=== PATIENT | male | born 1965 | race Caucasian/White ===

== ENCOUNTER 2019-04-10 05:49 | Day surgery (SDC) | payer OTHER ==
[~2019-04-10] VITALS: Ht 168.9 cm; Wt 74.1 kg
[2019-04-10] VITALS (15 sets, daily range): BP systolic 112–154; BP diastolic 76–100; PULSE 52–82; RESP 12–35
[2019-04-10] MEDS ORDERED: BUPIVACAINE 0.5% (SDV) 30 ML INJ ONE (07:00)
[2019-04-10] MEDS ORDERED: POLYMYXIN/BACITRACIN 1L IRRIG ONE (07:00)
--- NOTE | 2019-04-10 07:04 | HPN ---
Date/Time of Note Date/Time of Note DATE: 04/10/19 TIME: 07:03 Interval H&P Admission Note Pt. seen H&P reviewed: No system changes JOSTIN GAMINO DPM Apr 10, 2019 07:04
--- NOTE | 2019-04-10 07:27 | PREAC ---
Date/Time of Note Date/Time of Note DATE: 04/10/19 TIME: 07:25 Anesthesia Eval and Record Evaluation Time Pre-Procedure Interview DATE: 04/10/19 TIME: 07:25 Age 53 Sex male NPO: 8 hrs Preoperative diagnosis left hammertoe Planned procedure left hammertoe correction, bunionectomy Past Medical History Past Medical History: Includes Cardio: Dyslipidemia Surgery & Anesthesia Issues No known issue Meds Anticoagulation: No Beta Michaelle within 24 hr: No Reason Beta Michaelle not given: Pt. not on B-Michaelle Meds reviewed: Yes Allergies Coded Allergies: No Known Allergy (Unverified , 04/10/19) Allergies Reviewed: Yes Labs/Studies Labs Reviewed: Reviewed by anesthesiologist test: Negative Pre-procedure Exam Airway: Adequate mouth opening, Adequate thyromental dist Mallampati: Mallampati II Teeth: Normal Lung: Normal Heart: Normal ASA Physical Status ASA physical status: 1 Emergency: None Planned Anesthetic General/MAC: LMA Planned Pain Management Parenteral pain med Pre-operative Attestations Prior to commencing anesthesia and surgery, the patient was re-evaluated, there was verification of: *The patient's identity *The results of appropriate recent lab work and preoperative vital signs *The above evaluation not changing prior to induction *Anesthetic plan, risk benefits, alternative and complications discussed with patient/family; questions answered; patient/family understands, accepts and wishes to proceed. DELGADO MANZANO Apr 10, 2019 07:27
[2019-04-10] MEDS ORDERED: LIDOCAINE 1% (MPF) 30 ML INJ ONE (07:42)
[2019-04-10] MEDS ORDERED: PROPOFOL 20 ML ONE ×3 (07:44→07:56)
[2019-04-10] MEDS ORDERED: FENTAnyl 50 MCG/ML VIAL ONE (07:45)
[2019-04-10] MEDS ORDERED: CEFAZOLIN 1 GM INJ ONE (07:56)
[2019-04-10] MEDS ORDERED: LIDOCAINE 2% (SDV) 5 ML INJ ONE (07:56)
[2019-04-10] MEDS: DEXAMETHASONE 4 MG/ML 1 ML INJ ONE ×2 (08:11)
--- NOTE | 2019-04-10 08:39 | SIPON ---
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
--- NOTE | 2019-04-10 08:45 | PAC ---
Date/Time of Note Date/Time of Note DATE: 04/10/19 TIME: 08:44 Post-Anesthesia Notes Post-Anesthesia Note Last documented vital signs bp 134/78 p 78 Os sat 98% temp 98 Activity: WNL Respiratory function: WNL Cardiovascular function: WNL Mental status: Baseline Pain reasonably controlled: Yes Hydration appropriate: Yes Nausea/Vomiting absent: Yes DELGADO MANZANO Apr 10, 2019 08:45
[2019-04-10] MEDS ORDERED: MEPERIDINE 25 MG INJ ONE (08:51)
[2019-04-10] MEDS ORDERED: HYDROmorphONE 1 MG/5 ML IV SYRINGE IV PRN ×3 (09:00)
[2019-04-10] MEDS ORDERED: KETOROLAC 30 MG INJ IV PRN (09:00)
[2019-04-10] MEDS ORDERED: MEPERIDINE 25 MG INJ IV PRN (09:00)
[2019-04-10] MEDS ORDERED: OXYCODONE/ACETAMINOPHEN (5/325) TAB PO PRN ×2 (09:00)
[2019-04-10] MEDS ORDERED: DIPHENHYDRAMINE 50 MG INJ IV PRN (09:00)
[2019-04-10] MEDS ORDERED: hydrALAzine 20 MG INJ IV PRN (09:00)
[2019-04-10] MEDS ORDERED: EPHEDrine 25 MG/5 ML SYG IV PRN (09:00)
[2019-04-10] MEDS ORDERED: LACTATED RINGER'S 1,000 ML IV SCH (09:00)
[2019-04-10] MEDS ORDERED: FENTAnyl 50 MCG/ML VIAL IV PRN ×3 (09:00)
[2019-04-10] MEDS ORDERED: ONDANSETRON 4 MG INJ IV PRN (09:00)
[2019-04-10] MEDS ORDERED: ALBUTEROL 0.083% (NEB) 2.5 MG/3 ML AMP HHN PRN (09:00)
[2019-04-10] MEDS ORDERED: LABETALOL HCL 20MG INJ IV PRN (09:00)
--- NOTE | 2019-04-10 12:55 | OPR ---
DATE OF OPERATION: 04/10/2019 SURGEON: Radha Scott DPM. PREOPERATIVE DIAGNOSIS: Bunion deformity, left foot. POSTOPERATIVE DIAGNOSIS: Hammertoe deformity, second toe, left foot. PROCEDURE: Bunionectomy of the left foot and arthroplasty of the second toe, left foot. DESCRIPTION OF PROCEDURE: The patient was brought to the OR and placed in a supine position on the o perating room table. Anesthesia was achieved using MAC and local for 20 mL of lidocaine 1% plain. T he ankle was then wrapped several times with Webril and tourniquet was placed over the Webril. Next, the foot was draped and prepped in a sterile fashion and tourniquet was inflated to 250 mmHg. Attention was then directed to the dorsal aspect of the first MPJ of the left foot. A 4 cm linear in cision was made over the first MPJ. Incision was deepened in the same plane using sharp and blunt di ssection. Vital structures were identified and retracted from the site. Next, capsular incision was made and the first metatarsal bone was released from surrounding soft tissues. The medial prominent eminence and also dorsal prominent eminence of the bone was resected using a saw and rasp and smooth ed with a power bur. The area was then flushed with copious amount of normal saline and then capsula r closure was obtained using a 4-0 Vicryl and subcutaneous closure using 4-0 Vicryl and skin closure using christiano. Next, attention was directed to the dorsal aspect of the left second toe. A 2 cm luan ear incision was made over the PIPJ of the second toe. The incision was deepened using sharp dissect ion. The head of the proximal phalanx was identified and released from surrounding soft tissue. The head of the proximal phalanx was resected using a saw. The area was rasped smooth and then the exte nsor tendon was reattached using 4-0 Vicryl. Subcutaneous closure using 4-0 Vicryl and skin closure using 4-0 nylon in a simple interrupted fashion. The surgical site was then infiltrated with 4 mL of 0.5% Marcaine plain and 1 mL of dexamethasone sodium phosphate. The surgical site was then covered with Adaptic, 4 x 4s and Kerlix in a compressive fashion. The tourniquet was then deflated and immed iate capillary refill was noted to all digits of left foot. Patient tolerated anesthesia and procedu re well and left the OR for recovery room with vital signs stable and neurovascular status intact. Dictated By: RADHA ESTES/AMBROCIO Conf#: [id number] DID#: [id number]
== END 2019-04-10 10:15 | disposition home or self-care (01) ==
LOC: SDS 05:49
PROVIDERS: ATTEND Podiatrist
DX: M21.612 Bunion of left foot (principal); M20.41 Other hammer toe(s) (acquired), right foot
CPT/HCPCS: 28285; 28296; 88304; 88311; J0690; J1100; J1170; J2175; J2405; J3010; L3260; Z7512; Z7610